=== PATIENT | male | born 1975 | race Caucasian/White ===

== ENCOUNTER → 2019-02-04 | Outpatient (CLI) | payer BC ==
--- NOTE | 2019-02-04 12:39 | PCVCIMAG ---
APPROVED REPORT Study performed: 02/04/2019 11:50:20 Exam: Stress Echocardiogram Indication: CAD , Hyperlipidemia Patient Location: Echo lab Stress Nurse: Arelis Azar RN Room #: 2 Status: routine Ht: 6 ft 2 in HR: 53 bpm BP: 136/90 mmHg Rhythm: Sinus Bradycardia Medical History Medical History: CAD non obstructive, Hyperlipidemia Cardiac Risk Factors: FHX of CAD Previous Cardiac Procedures: none Pretest Chest Pain Characteristics: No chest pain Exercise History: Physically active Procedure The patient underwent an Exercise Stress Test using the Rafa Protocol. Blood pressure, heart rate, and EKG were monitored. An Echocardiogram was performed by ct technician in four stages in quad fashion. At peak stress, four selected images were obtained and placed side by side with resting images for comparison. Stress Test Details Stress Test: Exercise stress testing was performed using a Rafa protocol. HR Resting HR: 53 bpmMax Heart Rate (APMHR): 178 bpm Max HR Achieved: 171 bpmTarget HR (85% APMHR): 151 bpm % of APMHR: 96 Recovery HR: 105 bpm HR response to stress: Normal HR response to stress BP Resting BP: 136/90 mmHg Max BP: 146/86 mmHg Recovery BP: 118/86 mmHg BP response to stress: Normal blood pressure response to stress. ECG Resting ECG: Sinus Bradycardia Stress ECG: Sinus Rhythm, nonspecific ST-T abnormalities ST Change: Non-ischemic Maximum ST Deviation: -0.50 mm Arrhythmia: occ PACs, rare PVC Recovery ECG: Sinus Rhythm, NSSTT changes Recovery ST Change: Non-ischemic Recovery ST Deviation: 0.20 mm Recovery Arrhythmia: APC Clinical Reason for Termination: Maximal effort Stress Symptoms: none Exercise duration: 15 min 01 sec Highest Stage Achieved: Stage 5: 5.0 mph at 18% grade. Exercise capacity: 17.5 METs Overall Exercise Capacity for Age: Excellent Scale: Active Angina Score: None No complications. Stress ECG Conclusion Siegel Treadmill Score is 17.5 which is Low risk. Pre-Stress Echo The resting Echocardiogram showed normal left ventricular contractility with an estimated Ejection Fraction of about 55-60%. The resting echocardiogram demonstrated normal wall motion in all wall segments. Normal wall motion in all segments on baseline images. Post-Stress Echo The stress Echocardiogram showed normal left ventricular contractility with an estimated Ejection Fraction of about 65-70%. Compared to rest, there were no stress-induced wall motion abnormalities. Normal augmentation of wall motion in all segments on post stress images. Clinical No clinical or ECG evidence for ischemia. Conclusion Clinical Response: Non-ischemic Exercise Capacity: Superior Stress ECG Response: Non-ischemic Stress Echo Images: Non-ischemic No clinical, EKG or echocardiographic evidence for ischemia. No echocardiographic evidence for exercise induced ischemia. <Conclusion> No clinical, EKG or echocardiographic evidence for ischemia. No echocardiographic evidence for exercise induced ischemia.
== END | disposition home or self-care (01) ==
LOC: PCVCIMAG 10:31
PROVIDERS: ATTEND Internal Medicine Cardiovascular Disease
DX: I25.10 Atherosclerotic heart disease of native coronary artery without angina pectoris (principal); E78.5 Hyperlipidemia, unspecified
CPT/HCPCS: 93325; 93351